=== PATIENT | female | born 1960 | race Hispanic/Latino ===

== ENCOUNTER 2020-08-03 18:47 | Inpatient (IN) | payer BC ==
[~2020-08-03 18:47] MED LIST: ESCI10TA PO; RANI300T4 PO
[2020-08-03] MEDS ORDERED: ONDANSETRON 4MG INJ ONE (20:02)
[2020-08-03] MEDS ORDERED: MORPHINE 4 MG SYG ONE ×2 (20:03→22:33)
[2020-08-03 20:28] LABS: BASOPHILS % (AUTO) 0.3 % (0.0-5.0); EOSINOPHILS % (AUTO) 0.1 % (0.0-8.0); HEMATOCRIT 38.9 % (36-48); MEAN CORPUSCULAR HEMOGLOBIN 29.6 pg (27.0-33.0); MEAN CORPUSCULAR HGB CONC 34.2 g/dL (32.0-36.0); MEAN CORPUSCULAR VOLUME 86.4 fL (79-99); NEUTROPHILS % (AUTO) 77.9 % (40.0-77.0); PLATELET COUNT (AUTO) 186 K/uL (130-400); RED CELL DISTRIBUTION WIDTH 12.2 % (11.0-15.5); WHITE BLOOD COUNT (AUTO) 18.3 K/uL (4.8-10.8)
[2020-08-03 20:36] LABS: CARBON DIOXIDE 27 mmol/L (21-32); CHLORIDE 96 mmol/L (101-111); CREATININE 0.7 mg/dL (0.5-1.5); GLOMERULAR FILTR. RATE CALC 90 mL/min (>60); GLUCOSE,RANDOM 122 mg/dL (70-105); POTASSIUM 3.2 mmol/L (3.5-5.1); SODIUM SERUM 135 mmol/L (136-145); UREA NITROGEN, BLOOD 8 mg/dL (7-18)
[2020-08-03 20:41] LABS: ALANINE AMINOTRANSFERASE 29 U/L (12-78); ALBUMIN 3.2 g/dL (3.5-5.0); ASPARTATE AMINOTRANSFERASE 23 U/L (10-37); BILIRUBIN,TOTAL 0.8 mg/dL (0.2-1.0); TOTAL PROTEIN, SERUM 8.2 g/dL (6.0-8.3)
[2020-08-03 20:43] LABS: LIPASE < 50 U/L (114-286)
[2020-08-03 21:03] LABS: APPEARANCE,URINE Clear (CLEAR); BILIRUBIN,URINE Small (NEGATIVE); COLOR,URINE Dark Yellow (YELLOW); GLUCOSE, URINE (UA) Negative (NEGATIVE); KETONES,URINE 40 mg/dL (NEGATIVE); LEUKOCYTE ESTERASE ,URINE Small (NEGATIVE); NITRATE,URINE Negative (NEGATIVE); OCCULT BLOOD,URINE Negative (NEGATIVE); PROTEIN,URINE POS 1+ mg/dL (NEGATIVE)
[2020-08-03] MEDS ORDERED: IOHEXOL-350 75 ML VIAL IV ONE (21:13)
[2020-08-03 21:27] LABS: RBC,URINE 0-1 /HPF (0-1)
[2020-08-03 21:29] LABS: BACTERIA,URINE Few /HPF (None Seen); MUCUS,URINE Moderate LPF (None Seen); SQUAMOUS EPITHELIAL CELL,UR Few /HPF (0-2)
[2020-08-04] VITALS (23 sets, daily range): BP systolic 121–189; BP diastolic 70–97
[2020-08-04] MEDS ORDERED: ZOSYN 3.375GM+NS 50ML 50 ML IV ONE ×2 (01:04→08:23)
[2020-08-04] MEDS ORDERED: HYDROMORPHONE 1 MG INJ ONE (01:05)
[2020-08-04] MEDS: 0.9%NACL 1000ML 1,000 ML IV SCH ×4 (01:15→21:15)
[2020-08-04] MEDS ORDERED: MORPHINE 4 MG SYG IV PRN (01:15)
[2020-08-04] MEDS ORDERED: ONDANSETRON 4MG INJ IV PRN (01:15)
[2020-08-04] MEDS ORDERED: ACETAMINOPHEN 325 MG TAB PO PRN ×2 (01:15)
[2020-08-04] MEDS ORDERED: MORPHINE 2 MG SYG IV PRN (01:15)
[2020-08-04] MEDS: KCL 20 MEQ ERTAB PO SCH (01:15)
[2020-08-04 01:59] LABS: HEMOGLOBIN A1C 10.1 % (4.0-6.0)
[2020-08-04] MEDS ORDERED: ONDANSETRON 4MG INJ ONE ×2 (02:00→16:51)
[2020-08-04] MEDS ORDERED: KCL 20 MEQ ERTAB PO ONE (02:01)
[2020-08-04] MEDS ORDERED: ACETAMINOPHEN 325 MG TAB ONE (02:01)
[2020-08-04] MEDS ORDERED: MORPHINE 4 MG SYG ONE (04:47)
[2020-08-04] MEDS ORDERED: HYDROMORPHONE 0.5 MG SYG (0.5MG/0.5ML) ONE ×3 (06:46→13:05)
[2020-08-04] MEDS ORDERED: HYDROMORPHONE 0.5 MG SYG (0.5MG/0.5ML) IVP PRN ×2 (08:00→10:45)
[2020-08-04] MEDS ORDERED: FAMOTIDINE 20MG VIAL IV ONE (08:24)
[2020-08-04] MEDS ORDERED: 0.9%NACL 50ML 50 ML IV ONE (08:25)
[2020-08-04] MEDS ORDERED: HYDROMORPHONE 0.5 MG SYG (0.5MG/0.5ML) IVP SCH (08:45)
[2020-08-04] MEDS: FAMOTIDINE 20MG VIAL IV SCH ×2 (09:00→21:21)
[2020-08-04] MEDS: ZOSYN 3.375GM+NS 50ML 50 ML IV SCH ×2 (09:00→21:22)
[2020-08-04 13:41] LABS: BASOPHILS % (AUTO) 0.3 % (0.0-5.0); HEMATOCRIT 41.8 % (36-48); LYMPHOCYTES % (AUTO) 4.9 % (21.0-51.0); MEAN CORPUSCULAR HEMOGLOBIN 28.9 pg (27.0-33.0); MEAN CORPUSCULAR HGB CONC 32.1 g/dL (32.0-36.0); MEAN CORPUSCULAR VOLUME 90.3 fL (79-99); MONOCYTES % (AUTO) 9.5 % (3.0-13.0); NEUTROPHILS % (AUTO) 83.6 % (40.0-77.0); PLATELET COUNT (AUTO) 200 K/uL (130-400); RED BLOOD CELL COUNT(AUTO) 4.63 MIL/uL (4.00-5.50); RED CELL DISTRIBUTION WIDTH 12.3 % (11.0-15.5)
[2020-08-04 14:15] LABS: POTASSIUM 4.2 mmol/L (3.5-5.1)
[2020-08-04 14:19] LABS: ALBUMIN 2.9 g/dL (3.5-5.0); TOTAL PROTEIN, SERUM 8.4 g/dL (6.0-8.3)
[2020-08-04 14:20] LABS: LYMPHOCYTES % (MANUAL) 4 % (22-44); MAN.DIFF COMMENT-IMPRESSION MANUAL DIFFERENTIAL; MONOCYTES % (MANUAL) 9 % (2-9); PLATELET MORPHOLOGY COMMENT ADEQUATE; SEGMENTED NEUTROPHILS % 87 % (40-70)
[2020-08-04] MEDS ORDERED: TURM1POW2 MC (15:11)
[2020-08-04] MEDS ORDERED: INSLAN SQ (15:11)
[2020-08-04] MEDS ORDERED: CLON0.2T PO (15:11)
[2020-08-04] MEDS ORDERED: INSU100V IV (15:11)
[2020-08-04] MEDS ORDERED: LISI20TA24 PO (15:11)
[2020-08-04] MEDS ORDERED: PSYL283P35 PO (15:11)
[2020-08-04] MEDS ORDERED: MECO10005 SL (15:11)
[2020-08-04] MEDS: GABAPENTIN 100 MG CAPSULE PO SCH ×2 (15:30→21:21)
[2020-08-04] MEDS: METRONIDAZOLE 500MG/100ML BAG 100 ML IVPB SCH ×2 (16:36→21:21)
[2020-08-04] MEDS ORDERED: FENTANYL CITRATE PF 50 MCG/1 ML 2ML VIAL ONE ×2 (16:46→18:03)
[2020-08-04] MEDS ORDERED: MIDAZOLAM HCL 1 MG/ML 2ML VIAL ONE (16:46)
[2020-08-04] MEDS ORDERED: PROPOFOL 10 MG/ML 20ML VIAL IV ONE (16:50)
[2020-08-04] MEDS ORDERED: ROCURONIUM 10MG/1ML SYR 10 MG/ML ML ONE (16:50)
[2020-08-04] MEDS ORDERED: SUCCINYLCHOLINE CHLORIDE 20 MG/ML 10 ML VIAL ONE (16:50)
[2020-08-04] MEDS ORDERED: LIDOCAINE PF 100MG/5ML (2%) SYRINGE 5ML ONE (16:50)
[2020-08-04] MEDS ORDERED: BUPIVACAINE/PF 0.5% 30ML VIAL ONE (17:12)
[2020-08-04] MEDS ORDERED: METOCLOPRAMIDE 10 MG/2 ML VIAL ONE (18:03)
[2020-08-04] MEDS ORDERED: GLYCOPYRROLATE 1 MG/5 ML SYRINGE ONE (18:07)
[2020-08-04] MEDS ORDERED: NEOSTIGMINE 5MG/5ML SYR IV ONE (18:07)
[2020-08-04] MEDS ORDERED: LABETALOL 20MG VIAL IV ONE (18:42)
[2020-08-04] MEDS ORDERED: ONDANSETRON ODT 4MG TAB PO PRN (20:00)
[2020-08-05] VITALS (7 sets, daily range): BP systolic 132–185; BP diastolic 74–97
[2020-08-05] MEDS: ZOSYN 3.375GM+NS 50ML 50 ML IV SCH ×3 (00:33→17:14)
[2020-08-05] MEDS: KCL 20 MEQ ERTAB PO SCH (01:15)
[2020-08-05] MEDS: MORPHINE 4 MG SYG IVP PRN ×3 (02:22→20:47)
[2020-08-05] MEDS: 0.9%NACL 1000ML 1,000 ML IV SCH ×2 (04:25→18:56)
[2020-08-05] MEDS: ACETAMINOPHEN WITH CODEINE 1 TAB TAB PO PRN ×2 (04:26→18:38)
[2020-08-05 05:03] LABS: BASOPHILS % (AUTO) 0.3 % (0.0-5.0); HEMATOCRIT 38.9 % (36-48); LYMPHOCYTES % (AUTO) 6.7 % (21.0-51.0); MEAN CORPUSCULAR HEMOGLOBIN 29.8 pg (27.0-33.0); MEAN CORPUSCULAR HGB CONC 32.4 g/dL (32.0-36.0); MONOCYTES % (AUTO) 9.6 % (3.0-13.0); NEUTROPHILS % (AUTO) 82.1 % (40.0-77.0); PLATELET COUNT (AUTO) 203 K/uL (130-400); RED BLOOD CELL COUNT(AUTO) 4.23 MIL/uL (4.00-5.50); RED CELL DISTRIBUTION WIDTH 12.6 % (11.0-15.5)
[2020-08-05 05:21] LABS: ALBUMIN 2.5 g/dL (3.5-5.0); BILIRUBIN,TOTAL 0.6 mg/dL (0.2-1.0); POTASSIUM 3.9 mmol/L (3.5-5.1); TOTAL PROTEIN, SERUM 7.7 g/dL (6.0-8.3)
[2020-08-05] MEDS: METRONIDAZOLE 500MG/100ML BAG 100 ML IVPB SCH (05:56)
[2020-08-05] MEDS ORDERED: GLUCAGON 1MG KIT 1 MG ML IM PRN (06:30)
[2020-08-05] MEDS ORDERED: DEXTROSE 50%-WATER 50 ML DISP.SYRIN IV PRN (06:30)
[2020-08-05] MEDS: INSULIN HUMULIN R 100 UNIT/ML 3ML SQ SCH ×4 (09:24→20:54)
[2020-08-05] MEDS: GABAPENTIN 100 MG CAPSULE PO SCH ×5 (09:25→20:47)
[2020-08-05] MEDS: FAMOTIDINE 20MG VIAL IV SCH ×2 (09:25→20:46)
[2020-08-05] MEDS ORDERED: HYDRALAZINE 20MG/ML VIAL IV STA (16:52)
[2020-08-05] MEDS ORDERED: KETOROLAC 15MG/ML VIAL (15MG/ML) IM PRN (20:15)
[2020-08-05] MEDS: PHARMACY COMMUNICATION MISC SCH (20:30)
[2020-08-05] MEDS: LISINOPRIL 20 MG TABLET PO SCH (20:46)
[2020-08-05] MEDS ORDERED: SIMETHICONE 40 MG/0.6 ML ML PO SCH (21:30)
[2020-08-05] MEDS ORDERED: TRAMADOL HCL 50 MG TABLET PO PRN (21:45)
[2020-08-06] VITALS (7 sets, daily range): BP systolic 111–156; BP diastolic 54–100
[2020-08-06] MEDS: PHARMACY COMMUNICATION MISC SCH (00:03)
[2020-08-06] MEDS: ZOSYN 3.375GM+NS 50ML 50 ML IV SCH ×3 (01:02→16:10)
[2020-08-06] MEDS: ACETAMINOPHEN WITH CODEINE 1 TAB TAB PO PRN ×2 (01:10→15:03)
[2020-08-06] MEDS: KCL 20 MEQ ERTAB PO SCH (01:15)
[2020-08-06] MEDS: 0.9%NACL 1000ML 1,000 ML IV SCH ×2 (03:17→13:15)
[2020-08-06] MEDS: MORPHINE 4 MG SYG IVP PRN (03:46)
[2020-08-06 04:46] LABS: BASOPHILS % (AUTO) 0.3 % (0.0-5.0); EOSINOPHILS % (AUTO) 0.3 % (0.0-8.0); HEMATOCRIT 35.5 % (36-48); LYMPHOCYTES % (AUTO) 12.8 % (21.0-51.0); MEAN CORPUSCULAR HEMOGLOBIN 29.3 pg (27.0-33.0); MEAN CORPUSCULAR HGB CONC 33.5 g/dL (32.0-36.0); MEAN CORPUSCULAR VOLUME 87.4 fL (79-99); MONOCYTES % (AUTO) 11.9 % (3.0-13.0); NEUTROPHILS % (AUTO) 73.7 % (40.0-77.0); PLATELET COUNT (AUTO) 222 K/uL (130-400); RED BLOOD CELL COUNT(AUTO) 4.06 MIL/uL (4.00-5.50); RED CELL DISTRIBUTION WIDTH 12.4 % (11.0-15.5); WHITE BLOOD COUNT (AUTO) 14.5 K/uL (4.8-10.8)
[2020-08-06 05:15] LABS: ALBUMIN 2.2 g/dL (3.5-5.0); BILIRUBIN,TOTAL 0.7 mg/dL (0.2-1.0); CREATININE 0.6 mg/dL (0.5-1.5); TOTAL PROTEIN, SERUM 6.7 g/dL (6.0-8.3)
[2020-08-06 05:24] LABS: POTASSIUM 2.9 mmol/L (3.5-5.1)
[2020-08-06] MEDS: INSULIN HUMULIN R 100 UNIT/ML 3ML SQ SCH ×4 (05:58→20:30)
[2020-08-06] MEDS ORDERED: LIDOCAINE HCL-MPF 1% 2ML VIAL IV PRN (06:00)
[2020-08-06] MEDS ORDERED: POTASSIUM CHLORIDE 10% ELIXIR 20 MEQ/15 ML UDCUP PO PRN (06:00)
[2020-08-06] MEDS ORDERED: POTASSIUM CHLORIDE 20MEQ/100ML 100 ML IV PRN (06:00)
[2020-08-06] MEDS: LISINOPRIL 20 MG TABLET PO SCH ×2 (11:03→20:37)
[2020-08-06] MEDS: GABAPENTIN 100 MG CAPSULE PO SCH ×3 (11:03→20:38)
[2020-08-06] MEDS: FAMOTIDINE 20MG VIAL IV SCH ×2 (11:04→20:37)
[2020-08-06] MEDS: KCL 20 MEQ ERTAB PO PRN ×4 (11:06→16:14)
[2020-08-07] MEDS: ZOSYN 3.375GM+NS 50ML 50 ML IV SCH ×2 (00:33→10:02)
[2020-08-07] MEDS: MORPHINE 4 MG SYG IVP PRN (00:33)
[2020-08-07] MEDS: KCL 20 MEQ ERTAB PO SCH (01:15)
[2020-08-07 03:39] VITALS: BP 120/52
[2020-08-07] MEDS: ACETAMINOPHEN WITH CODEINE 1 TAB TAB PO PRN ×2 (04:47→13:16)
[2020-08-07 05:46] LABS: BASOPHILS % (AUTO) 0.4 % (0.0-5.0); EOSINOPHILS % (AUTO) 1.6 % (0.0-8.0); HEMATOCRIT 31.8 % (36-48); LYMPHOCYTES % (AUTO) 15.7 % (21.0-51.0); MEAN CORPUSCULAR HEMOGLOBIN 29.4 pg (27.0-33.0); MEAN CORPUSCULAR VOLUME 89.1 fL (79-99); MONOCYTES % (AUTO) 11.6 % (3.0-13.0); NEUTROPHILS % (AUTO) 69.8 % (40.0-77.0); PLATELET COUNT (AUTO) 224 K/uL (130-400); RED BLOOD CELL COUNT(AUTO) 3.57 MIL/uL (4.00-5.50); RED CELL DISTRIBUTION WIDTH 12.6 % (11.0-15.5); WHITE BLOOD COUNT (AUTO) 10.3 K/uL (4.8-10.8)
[2020-08-07 06:10] LABS: ALBUMIN 2.2 g/dL (3.5-5.0); BILIRUBIN,TOTAL 0.5 mg/dL (0.2-1.0); CREATININE 0.7 mg/dL (0.5-1.5); POTASSIUM 4.2 mmol/L (3.5-5.1); TOTAL PROTEIN, SERUM 6.6 g/dL (6.0-8.3)
[2020-08-07] MEDS: INSULIN HUMULIN R 100 UNIT/ML 3ML SQ SCH ×3 (06:33→16:16)
[2020-08-07 08:30] VITALS: BP 119/63
[2020-08-07] MEDS: GABAPENTIN 100 MG CAPSULE PO SCH ×2 (10:02→13:15)
[2020-08-07] MEDS: FAMOTIDINE 20MG VIAL IV SCH (10:02)
[2020-08-07] MEDS: LISINOPRIL 20 MG TABLET PO SCH (10:03)
[2020-08-07] MEDS ORDERED: DOCUSATE SODIUM 100 MG CAP PO SCH (10:15)
[2020-08-07 13:51] VITALS: BP 116/65
[2020-08-07 16:41] VITALS: BP 139/74
== END 2020-08-07 18:00 | disposition home or self-care (01) | DRG 854 ==
LOC: EDH 18:47 → EDHIP 08-04 01:08 → 3CH 08-04 13:11
PROVIDERS: ADMIT Internal Medicine; ATTEND Internal Medicine
PROC: 0FT44ZZ Resection of Gallbladder, Percutaneous Endoscopic Approach (ICD-10-PCS; principal; 2020-08-04 16:15)
DX: A41.9 Sepsis, unspecified organism (principal); K81.0 Acute cholecystitis; E87.1 Hypo-osmolality and hyponatremia; K82.A1 Gangrene of gallbladder in cholecystitis; E87.6 Hypokalemia; E10.9 Type 1 diabetes mellitus without complications; K66.0 Peritoneal adhesions (postprocedural) (postinfection); K59.00 Constipation, unspecified; E66.9 Obesity, unspecified; I10 Essential (primary) hypertension; Z83.3 Family history of diabetes mellitus; Z90.710 Acquired absence of both cervix and uterus; Z98.891 History of uterine scar from previous surgery; Z79.899 Other long term (current) drug therapy; Z88.4 Allergy status to anesthetic agent; Z88.8 Allergy status to other drugs, medicaments and biological substances
CPT/HCPCS: 36415; 74177; 76705; 80053; 81001; 82948; 83036; 83690; 83735; 84132; 84145; 85025; G0378; J0330; J0360; J1170; J1815; J2001; J2250; J2270; J2405; J2543; J2704; J2710; J2765; J3010; J3480; J3490; J7030; Q9967